=== PATIENT | male | born 1955 | race Caucasian/White ===

== ENCOUNTER 2016-12-20 19:12 | Inpatient (IN) | payer MEDICARE, BLACK LUNG ==
[~2016-12-20] VITALS: Ht 188 cm; Wt 127.0 kg
[~2016-12-20 19:12] MED LIST: BETAPACE120 MG PO; CEFDINIR300 MG PO; CELEXA20 MG PO; COLACE100 MG PO; COUMADIN6 MG PO; CYANOCOBAL1000 MCG/1 INJ; GLUCOPHAGE500 MG PO; K-DUR20 MEQ PO; LYRICA150 MG PO; LYRICA300 MG PO; OXYCODON-ACETA1 EAC1 PO; PENTASA500 MG PO; PENTAZOCINE-NA1 EACH PO; POTASSIUM CITRATE PO; PROTONIX40 MG PO; VALIUM10 MG PO; ZITHROMAX250 MG PO
[2016-12-20 20:21] LABS: BASO % 0.3 % (0.2-1.2); EOS # 0.1 10_X3_uL (0.0-0.5); EOS % 1.1 % (0.8-7.0); GRAN # 4.2 10_X3_uL (1.8-5.4); GRAN % 58.3 % (34.0-67.9); HEMATOCRIT 42.1 % (40-51); HEMOGLOBIN 13.6 g/dL (13.7-17.5); LYMPH # 2.4 10_X3_uL (1.3-3.6); LYMPH % 33.3 % (21.8-53.1); MEAN CORPUSCULAR HGB CONC 32.3 g/dL (32.0-36.0); MEAN CORPUSCULAR VOLUME 92.9 fL (79-92); MEAN PLATELET VOLUME 8.7 fl (7.5-11.5); MONO # 0.5 10_X3_uL (0.3-0.8); PLATELET COUNT 193 x10_3/uL (163-337); RED BLOOD COUNT 4.53 x10_6/uL (4.6-6.1); RED CELL DISTRIBUTION WIDTH 15.6 % (11.6-14.4); WHITE BLOOD COUNT 7.1 x10_3/uL (4.2-9.1)
[2016-12-20 20:30] LABS: INR 1.8 (0.9-1.1); PROTHROMBIN TIME (PATIENT) 18.5 SECONDS (9.9-11.1)
[2016-12-20 20:37] LABS: ALBUMIN 3.5 gm/dL (3.4-5.0); BILIRUBIN,TOTAL 0.29 mg/dL (0.0-1.0); CALCIUM 8.6 mg/dL (8.7-10.7); CREATININE 1.4 mg/dL (0.6-1.3); POTASSIUM 4.4 mmol/L (3.5-5.1); TOTAL PROTEIN 6.5 gm/dL (6.4-8.2)
[2016-12-21 07:01] LABS: BASO % 0.1 % (0.2-1.2); EOS # 0.1 10_X3_uL (0.0-0.5); EOS % 0.9 % (0.8-7.0); GRAN # 4.7 10_X3_uL (1.8-5.4); GRAN % 62.7 % (34.0-67.9); HEMATOCRIT 43.2 % (40-51); HEMOGLOBIN 13.5 g/dL (13.7-17.5); LYMPH # 2.2 10_X3_uL (1.3-3.6); LYMPH % 28.6 % (21.8-53.1); MEAN CORPUSCULAR HGB CONC 31.3 g/dL (32.0-36.0); MEAN CORPUSCULAR VOLUME 92.9 fL (79-92); MEAN PLATELET VOLUME 8.8 fl (7.5-11.5); MONO # 0.6 10_X3_uL (0.3-0.8); MONO % 7.7 % (5.3-12.2); PLATELET COUNT 208 x10_3/uL (163-337); RED BLOOD COUNT 4.65 x10_6/uL (4.6-6.1); RED CELL DISTRIBUTION WIDTH 15.6 % (11.6-14.4); WHITE BLOOD COUNT 7.6 x10_3/uL (4.2-9.1)
[2016-12-21 07:11] LABS: INR 1.8 (0.9-1.1); PROTHROMBIN TIME (PATIENT) 18.3 SECONDS (9.9-11.1)
[2016-12-21 07:14] LABS: ALBUMIN 3.8 gm/dL (3.4-5.0); BILIRUBIN,TOTAL 0.37 mg/dL (0.0-1.0); CALCIUM 8.7 mg/dL (8.7-10.7); CREATININE 1.3 mg/dL (0.6-1.3); POTASSIUM 3.9 mmol/L (3.5-5.1); TOTAL PROTEIN 6.7 gm/dL (6.4-8.2)
[2016-12-22 09:40] LABS: HEMATOCRIT 45.8 % (40-51); HEMOGLOBIN 14.8 g/dL (13.7-17.5); MEAN CORPUSCULAR HGB CONC 32.3 g/dL (32.0-36.0); MEAN CORPUSCULAR VOLUME 92.9 fL (79-92); MEAN PLATELET VOLUME 9.2 fl (7.5-11.5); RED BLOOD COUNT 4.93 x10_6/uL (4.6-6.1); RED CELL DISTRIBUTION WIDTH 15.6 % (11.6-14.4)
[2016-12-22 09:44] LABS: INR 1.7 (0.9-1.1); PROTHROMBIN TIME (PATIENT) 17.7 SECONDS (9.9-11.1)
[2016-12-22 10:20] LABS: CALCIUM 8.7 mg/dL (8.7-10.7); CREATININE 1.3 mg/dL (0.6-1.3); POTASSIUM 4.6 mmol/L (3.5-5.1)
[2016-12-23 07:05] LABS: HEMATOCRIT 44.2 % (40-51); HEMOGLOBIN 14.2 g/dL (13.7-17.5); MEAN CORPUSCULAR HEMOGLOBIN 29.5 pg (27.0-33.0); MEAN CORPUSCULAR HGB CONC 32.1 g/dL (32.0-36.0); MEAN CORPUSCULAR VOLUME 91.7 fL (79-92); RED BLOOD COUNT 4.82 x10_6/uL (4.6-6.1); RED CELL DISTRIBUTION WIDTH 15.3 % (11.6-14.4); WHITE BLOOD COUNT 8.1 x10_3/uL (4.2-9.1)
[2016-12-23 07:17] LABS: INR 1.8 (0.9-1.1); PROTHROMBIN TIME (PATIENT) 18.9 SECONDS (9.9-11.1)
[2016-12-23 07:20] LABS: CALCIUM 8.7 mg/dL (8.7-10.7); CREATININE 1.3 mg/dL (0.6-1.3); POTASSIUM 4.1 mmol/L (3.5-5.1)
[2016-12-24 07:50] LABS: INR 1.9 (0.9-1.1); PROTHROMBIN TIME (PATIENT) 19.5 SECONDS (9.9-11.1)
[2016-12-24 08:28] LABS: HEMATOCRIT 44.9 % (40-51); HEMOGLOBIN 14.3 g/dL (13.7-17.5); MEAN CORPUSCULAR HEMOGLOBIN 29.5 pg (27.0-33.0); MEAN CORPUSCULAR HGB CONC 31.8 g/dL (32.0-36.0); MEAN CORPUSCULAR VOLUME 92.8 fL (79-92); MEAN PLATELET VOLUME 8.8 fl (7.5-11.5); RED BLOOD COUNT 4.84 x10_6/uL (4.6-6.1); RED CELL DISTRIBUTION WIDTH 15.3 % (11.6-14.4); WHITE BLOOD COUNT 7.8 x10_3/uL (4.2-9.1)
[2016-12-24 08:28] LABS: CALCIUM 8.9 mg/dL (8.7-10.7); CREATININE 1.4 mg/dL (0.6-1.3); POTASSIUM 4.1 mmol/L (3.5-5.1)
[2016-12-25 07:13] LABS: PROTHROMBIN TIME (PATIENT) 20.7 SECONDS (9.9-11.1)
[2016-12-25 07:33] LABS: CALCIUM 8.6 mg/dL (8.7-10.7); CREATININE 1.3 mg/dL (0.6-1.3); POTASSIUM 4.1 mmol/L (3.5-5.1)
[2016-12-26 07:14] LABS: BASO % 0.3 % (0.2-1.2); EOS # 0.1 10_X3_uL (0.0-0.5); GRAN # 4.2 10_X3_uL (1.8-5.4); GRAN % 54.5 % (34.0-67.9); HEMATOCRIT 44.4 % (40-51); HEMOGLOBIN 14.3 g/dL (13.7-17.5); LYMPH # 2.7 10_X3_uL (1.3-3.6); LYMPH % 35.2 % (21.8-53.1); MEAN CORPUSCULAR HGB CONC 32.2 g/dL (32.0-36.0); MEAN CORPUSCULAR VOLUME 93.1 fL (79-92); MEAN PLATELET VOLUME 9.4 fl (7.5-11.5); MONO # 0.7 10_X3_uL (0.3-0.8); PLATELET COUNT 197 x10_3/uL (163-337); RED BLOOD COUNT 4.77 x10_6/uL (4.6-6.1); RED CELL DISTRIBUTION WIDTH 15.6 % (11.6-14.4); WHITE BLOOD COUNT 7.7 x10_3/uL (4.2-9.1)
[2016-12-26 07:30] LABS: CALCIUM 8.6 mg/dL (8.7-10.7); CREATININE 1.4 mg/dL (0.6-1.3); POTASSIUM 4.3 mmol/L (3.5-5.1)
[2016-12-26 07:31] LABS: INR 2.2 (0.9-1.1); PROTHROMBIN TIME (PATIENT) 22.9 SECONDS (9.9-11.1)
[2016-12-27 07:29] LABS: HEMATOCRIT 44.9 % (40-51); HEMOGLOBIN 14.3 g/dL (13.7-17.5); MEAN CORPUSCULAR HEMOGLOBIN 29.8 pg (27.0-33.0); MEAN CORPUSCULAR HGB CONC 31.8 g/dL (32.0-36.0); MEAN CORPUSCULAR VOLUME 93.5 fL (79-92); MEAN PLATELET VOLUME 8.9 fl (7.5-11.5); RED BLOOD COUNT 4.8 x10_6/uL (4.6-6.1); RED CELL DISTRIBUTION WIDTH 15.3 % (11.6-14.4); WHITE BLOOD COUNT 7.1 x10_3/uL (4.2-9.1)
[2016-12-27 07:39] LABS: INR 2.4 (0.9-1.1); PROTHROMBIN TIME (PATIENT) 24.6 SECONDS (9.9-11.1)
[2016-12-27 07:46] LABS: CALCIUM 8.5 mg/dL (8.7-10.7); CREATININE 1.3 mg/dL (0.6-1.3); POTASSIUM 4.3 mmol/L (3.5-5.1)
== END 2016-12-27 12:53 | disposition home or self-care (01) | DRG 603 ==
LOC: MS 19:12
PROVIDERS: Family Medicine; ADMIT Family Medicine
PROC: 3E0234Z Introduction of Serum, Toxoid and Vaccine into Muscle, Percutaneous Approach (ICD-10-PCS; principal; 2016-12-21)
DX: L03.116 Cellulitis of left lower limb (principal); K50.90 Crohn's disease, unspecified, without complications; N17.9 Acute kidney failure, unspecified; E11.622 Type 2 diabetes mellitus with other skin ulcer; I48.91 Unspecified atrial fibrillation; Z90.49 Acquired absence of other specified parts of digestive tract; Z98.890 Other specified postprocedural states; J44.9 Chronic obstructive pulmonary disease, unspecified; Z89.421 Acquired absence of other right toe(s); I12.9 Hypertensive chronic kidney disease with stage 1 through stage 4 chronic kidney disease, or unspecified chronic kidney disease; Z86.14 Personal history of Methicillin resistant Staphylococcus aureus infection; Z80.9 Family history of malignant neoplasm, unspecified; Z83.3 Family history of diabetes mellitus; Z82.49 Family history of ischemic heart disease and other diseases of the circulatory system; J60 Coalworker's pneumoconiosis; M26.9 Dentofacial anomaly, unspecified; N18.9 Chronic kidney disease, unspecified; R00.1 Bradycardia, unspecified; Z23 Encounter for immunization; Z88.8 Allergy status to other drugs, medicaments and biological substances; Z91.041 Radiographic dye allergy status; Z79.1 Long term (current) use of non-steroidal anti-inflammatories (NSAID); Z79.899 Other long term (current) drug therapy; Z79.84 Long term (current) use of oral hypoglycemic drugs; Z79.01 Long term (current) use of anticoagulants
CPT/HCPCS: 36415; 78315; 80048; 80053; 80061; 80202; 82962; 83036; 85025; 85610; 90653; 94640; 94664; 96365; 96366; 96367; 99070; G0008; G0378; J3370; J7050

== ENCOUNTER 2016-12-20 19:12 | Observation (INO) | payer BLACK LUNG, MEDICARE | END 2016-12-22 10:55 | disposition other institution (70) | LOC: MS 19:12 | PROVIDERS: ADMIT Family Medicine | PROC: 3E0234Z Introduction of Serum, Toxoid and Vaccine into Muscle, Percutaneous Approach (ICD-10-PCS; principal; 2016-12-21) | DX: L03.116 Cellulitis of left lower limb (principal); K50.90 Crohn's disease, unspecified, without complications; N17.9 Acute kidney failure, unspecified; E11.622 Type 2 diabetes mellitus with other skin ulcer; I48.91 Unspecified atrial fibrillation; Z44.9 Encounter for fitting and adjustment of unspecified external prosthetic device; I12.9 Hypertensive chronic kidney disease with stage 1 through stage 4 chronic kidney disease, or unspecified chronic kidney disease; N18.9 Chronic kidney disease, unspecified; J60 Coalworker's pneumoconiosis; M26.9 Dentofacial anomaly, unspecified; R00.1 Bradycardia, unspecified; Z90.49 Acquired absence of other specified parts of digestive tract; Z98.890 Other specified postprocedural states; Z89.421 Acquired absence of other right toe(s); Z86.14 Personal history of Methicillin resistant Staphylococcus aureus infection; Z80.9 Family history of malignant neoplasm, unspecified; Z83.3 Family history of diabetes mellitus; Z82.49 Family history of ischemic heart disease and other diseases of the circulatory system; Z88.8 Allergy status to other drugs, medicaments and biological substances; Z91.041 Radiographic dye allergy status; Z79.1 Long term (current) use of non-steroidal anti-inflammatories (NSAID); Z79.899 Other long term (current) drug therapy; Z79.84 Long term (current) use of oral hypoglycemic drugs; Z79.01 Long term (current) use of anticoagulants; Z23 Encounter for immunization | CPT/HCPCS: 36415; 78315; 80053; 80061; 82962; 83036; 85025; 85610; 90653; 94640; 94664; 96365; 96366; 96367; 99070; G0008; G0378; J3370; J7050 ==